=== PATIENT | female | born 2005 ===

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

== ENCOUNTER 2023-07-04 20:14 | Emergency (ER) | payer BC, MEDICAID ==
[2023-07-04 21:51] LABS: CORONAVIRUS COVID-19 NAA NEGATIVE (NEGATIVE); INFLUENZA A NAA NEGATIVE (NEGATIVE); INFLUENZA B NAA NEGATIVE (NEGATIVE); RESPIRATORY SYNCYTIAL VIR NAA NEGATIVE (NEGATIVE)
[2023-07-04] MEDS ORDERED: Amoxicillin/Clavulanate K 875-125 MG Tab PO ONE (21:53)
== END 2023-07-04 22:15 | disposition home or self-care (01) ==
LOC: MW.ED 20:14
DX: H66.91 Otitis media, unspecified, right ear (principal)
CPT/HCPCS: 0241U; 99283; A9270